=== PATIENT | male | born 1960 | race Caucasian/White ===

== ENCOUNTER 2017-09-29 21:28 | Emergency (ER) | payer BC ==
[2017-09-29] MEDS ORDERED: SODIUM CHLORIDE 0.9% FLUSH 10 ML SOL IV PRN (21:48)
[2017-09-29 21:52] LABS: BASOPHILS % (AUTO) 1 % (0-3); EOSINOPHILS % (AUTO) 2 % (0-9); HEMATOCRIT 39 % (39-53); MEAN CORPUSCULAR HGB CONC 36.5 gm/dl (32.0-36.0); MEAN CORPUSCULAR VOLUME 87 fL (80-100); MONOCYTES % (AUTO) 6.4 % (0-12); NEUTROPHILS % (AUTO) 58.7 % (37-80)
[2017-09-29 21:54] VITALS: TEMP 97.8; O2SAT 98
[2017-09-29 22:02] LABS: CALCIUM 9.1 mg/dl (8.5-10.1); POTASSIUM 3.6 mMol/L (3.5-5.1)
[2017-09-29] MEDS ORDERED: SOLUMEDROL 125 MG/2 ML 125 MG/2 ML PDS IV ONE (22:28)
[2017-09-29] MEDS ORDERED: SOLUMEDROL 125 MG/2 ML 125 MG/2 ML PDS ONE (22:41)
[2017-09-30 02:25] VITALS: BP 153/92; PULSE 62; RESP 17
== END 2017-09-29 23:10 | disposition home or self-care (01) ==
LOC: ED 21:28
DX: G51.0 Bell's palsy (principal)
CPT/HCPCS: 99285 ×3; 80048; 85025; 85610; 85730; J2930; 70450; 96374; 99284